=== PATIENT | female | born 1960 | race Caucasian/White ===

== ENCOUNTER 2019-11-19 10:32 | Observation (INO) ==
[2019-11-19] MEDS ORDERED: Aspirin 325 MG TABLET PO ONE (11:09)
[2019-11-19 11:10] LABS: Basophils % 0.7 %; Eosinophils # 0.1 K/mcL (0.0-0.6); Eosinophils % 1.6 %; Hematocrit 48.5 % (35.3-44.9); Immature Granulocytes % 0.2 % (0-4); Lymphocytes # 1.5 K/mcL (0.6-4.6); Lymphocytes % 23.9 %; Mean Corpuscular Hemoglobin 30.9 pg (28.0-33.3); Mean Corpuscular Volume 93.8 fL (83.0-100.0); Mean Platelet Volume 11.8 fL (9.4-12.4); Monocytes # 0.6 K/mcL (0.0-1.3); Platelet Count 192 K/mcL (140-400); Red Blood Count 5.17 M/mcL (3.82-4.97); Red Cell Distribution Width 12.7 % (11.5-14.5); Segmented Neutrophils % 64.6 %; White Blood Count 6.1 K/mcL (4.3-11.1)
[2019-11-19 11:36] LABS: BUN/Creatinine Ratio 19 (6-26); Blood Urea Nitrogen 16 mg/dL (6-20); Calcium 9.9 mg/dL (8.6-10.3); Carbon Dioxide 26 mEq/L (23-29); Chloride 103 mEq/L (98-107); Glucose 108 mg/dL (70-105); Osmolality,Calculated 288 (280-300); Potassium 3.6 mEq/L (3.5-5.1); Sodium 138 mEq/L (136-145); Troponin I < 0.03 ng/mL (< 0.04); eGFR For African Americans > 60 (> 60); eGFR For Non-African Americans > 60 (> 60)
[2019-11-19] MEDS ORDERED: Naloxone 0.4 MG/ML INJ IVP PRN (13:09)
[2019-11-19] MEDS ORDERED: Mag Hydrox/Al Hydrox/Simeth 30 ML UDC PO PRN (13:09)
[2019-11-19] MEDS ORDERED: Ondansetron ODT 4 MG TAB.RAPDIS SL PRN (13:09)
[2019-11-19] MEDS ORDERED: MOM Conc 10 ML UD.LIQ PO PRN (13:09)
[2019-11-19] MEDS ORDERED: Metoprolol 100 MG TABLET PO ONE (13:33)
[2019-11-19] MEDS ORDERED: 0.9 % Sodium Chloride 1,000 ML ONE (13:51)
[2019-11-19] MEDS ORDERED: Nitroglycerin 0.4 MG TAB.SUBL SL ONE ×2 (13:51→14:45)
[2019-11-19] MEDS ORDERED: *HR* Metoprolol 5 MG/5 ML VIAL IVP ONE (15:07)
[2019-11-19] MEDS ORDERED: Isovue-370 500 ML BOTTLE IVP ONE (15:28)
[2019-11-19] MEDS ORDERED: *HR* Heparin 5,000 UNIT/ML VIAL IVP PRN ×2 (16:08)
[2019-11-19] MEDS ORDERED: *HR* Heparin 5,000 UNIT/ML VIAL IVP ONE (16:08)
[2019-11-19 16:52] LABS: Hematocrit 43.5 % (35.3-44.9); Hemoglobin 14.5 g/dL (11.5-15.4); Mean Corpuscular HGB Conc 33.3 g/dL (31.6-35.5); Mean Corpuscular Hemoglobin 31.2 pg (28.0-33.3); Mean Corpuscular Volume 93.5 fL (83.0-100.0); Mean Platelet Volume 11.4 fL (9.4-12.4); Platelet Count 189 K/mcL (140-400); Red Blood Count 4.65 M/mcL (3.82-4.97); Red Cell Distribution Width 12.7 % (11.5-14.5); White Blood Count 5.3 K/mcL (4.3-11.1)
[2019-11-19 16:56] LABS: Heparin anti-factor XA UFH < 0.04 IU/mL (0.30-0.70); INR 1.1; Prothrombin Time 12.6 Seconds (9.4-12.1)
[2019-11-19] MEDS: Heparin 25,000 UNIT/250 ML D5W 25,000 UNIT/250 ML IV.SOLN IVC SCH (17:02)
[2019-11-20] MEDS ORDERED: Regadenoson 0.4 MG/5 ML SYRINGE IVP ONE (07:44)
[2019-11-20] MEDS: Aspirin 81 MG TAB.CHEW PO SCH (07:56)
[2019-11-20 09:15] LABS: Hematocrit 44.4 % (35.3-44.9); Hemoglobin 14.5 g/dL (11.5-15.4); Mean Corpuscular HGB Conc 32.7 g/dL (31.6-35.5); Mean Corpuscular Volume 95.1 fL (83.0-100.0); Mean Platelet Volume 11.8 fL (9.4-12.4); Platelet Count 173 K/mcL (140-400); Red Blood Count 4.67 M/mcL (3.82-4.97); Red Cell Distribution Width 12.7 % (11.5-14.5)
[2019-11-20 09:34] LABS: BUN/Creatinine Ratio 21 (6-26); Blood Urea Nitrogen 15 mg/dL (6-20); Calcium 9.1 mg/dL (8.6-10.3); Carbon Dioxide 26 mEq/L (23-29); Chloride 106 mEq/L (98-107); Glucose 77 mg/dL (70-105); Osmolality,Calculated 288 (280-300); Potassium 3.6 mEq/L (3.5-5.1); Sodium 139 mEq/L (136-145); eGFR For African Americans > 60 (> 60); eGFR For Non-African Americans > 60 (> 60)
[2019-11-20 09:35] LABS: Chol/HDL Ratio 2.9 (0-4.9)
[2019-11-20] MEDS: Acetaminophen 325 MG TABLET PO PRN (10:48)
[2019-11-20] MEDS ORDERED: Ondansetron 4 MG/2 ML VIAL IVP PRN (10:55)
[2019-11-20] MEDS: Heparin 25,000 UNIT/250 ML D5W 25,000 UNIT/250 ML IV.SOLN IVC SCH (17:09)
[2019-11-21] MEDS: Aspirin 81 MG TAB.CHEW PO SCH (07:37)
[2019-11-21 07:42] LABS: Estimated Average Glucose 114 mg/dl
[2019-11-21] MEDS: *HR* Heparin 5,000 UNIT/ML VIAL SQ SCH (17:24)
[2019-11-22] MEDS: *HR* Heparin 5,000 UNIT/ML VIAL SQ SCH ×2 (04:46→17:05)
[2019-11-22 05:10] LABS: Basophils # 0.1 K/mcL (0.0-0.2); Basophils % 1.5 %; Eosinophils # 0.2 K/mcL (0.0-0.6); Eosinophils % 5.9 %; Hematocrit 40.8 % (35.3-44.9); Hemoglobin 13.6 g/dL (11.5-15.4); Lymphocytes # 1.2 K/mcL (0.6-4.6); Lymphocytes % 35.2 %; Mean Corpuscular HGB Conc 33.3 g/dL (31.6-35.5); Mean Corpuscular Hemoglobin 31.5 pg (28.0-33.3); Mean Corpuscular Volume 94.4 fL (83.0-100.0); Mean Platelet Volume 12.2 fL (9.4-12.4); Monocytes # 0.4 K/mcL (0.0-1.3); Monocytes % 12.6 %; Neutrophils # 1.5 K/mcL (1.6-8.9); Platelet Count 145 K/mcL (140-400); Red Blood Count 4.32 M/mcL (3.82-4.97); Red Cell Distribution Width 12.8 % (11.5-14.5); Segmented Neutrophils % 44.8 %; White Blood Count 3.4 K/mcL (4.3-11.1)
[2019-11-22 05:27] LABS: BUN/Creatinine Ratio 20 (6-26); Blood Urea Nitrogen 16 mg/dL (6-20); Calcium 8.9 mg/dL (8.6-10.3); Carbon Dioxide 28 mEq/L (23-29); Chloride 109 mEq/L (98-107); Glucose 97 mg/dL (70-105); Osmolality,Calculated 291 (280-300); Potassium 3.9 mEq/L (3.5-5.1); Sodium 140 mEq/L (136-145); eGFR For African Americans > 60 (> 60); eGFR For Non-African Americans > 60 (> 60)
[2019-11-22] MEDS: Aspirin 81 MG TAB.CHEW PO SCH (08:08)
[2019-11-22] MEDS ORDERED: 0.9 % Sodium Chloride 1,000 ML ONE ×2 (08:10→09:16)
[2019-11-22] MEDS ORDERED: *HR* FentaNYL (PF) 100 MCG/2 ML VIAL ONE (08:13)
[2019-11-22] MEDS ORDERED: *HR* Midazolam HCl 2 MG/2 ML VIAL ONE (08:13)
[2019-11-22] MEDS ORDERED: Heparin 1,000 UNITS/500 mL 500 ML ONE (09:16)
[2019-11-22] MEDS ORDERED: ISOVUE-370 200 ML INFUS..BTL ONE (09:16)
[2019-11-22] MEDS ORDERED: *HR* Heparin 10,000 UNIT/10 ML VIAL ONE (09:16)
[2019-11-22] MEDS ORDERED: Nitroglycerin 1,000 MCG/10 ML VIAL IV ONE (09:16)
[2019-11-22] MEDS: Isosorbide MONOnitrate (24 HR) 30 MG TAB.ER.24H PO SCH (17:05)
[2019-11-22] MEDS: Acetaminophen 325 MG TABLET PO PRN (17:29)
[2019-11-23 05:28] LABS: Hematocrit 39.4 % (35.3-44.9); Mean Platelet Volume 12.2 fL (9.4-12.4); Platelet Count 149 K/mcL (140-400); Red Blood Count 4.19 M/mcL (3.82-4.97); Red Cell Distribution Width 12.8 % (11.5-14.5); White Blood Count 4.6 K/mcL (4.3-11.1)
[2019-11-23 05:46] LABS: BUN/Creatinine Ratio 22 (6-26); Blood Urea Nitrogen 16 mg/dL (6-20); Carbon Dioxide 29 mEq/L (23-29); Chloride 106 mEq/L (98-107); Glucose 96 mg/dL (70-105); Osmolality,Calculated 287 (280-300); Potassium 3.9 mEq/L (3.5-5.1); Sodium 138 mEq/L (136-145); eGFR For African Americans > 60 (> 60); eGFR For Non-African Americans > 60 (> 60)
[2019-11-23] MEDS: *HR* Heparin 5,000 UNIT/ML VIAL SQ SCH (06:26)
[2019-11-23 06:40] VITALS: BP 121/79
[2019-11-23] MEDS: Aspirin 81 MG TAB.CHEW PO SCH (08:18)
[2019-11-23] MEDS: Isosorbide MONOnitrate (24 HR) 30 MG TAB.ER.24H PO SCH (08:18)
[2019-11-23] MEDS: Acetaminophen 325 MG TABLET PO PRN (08:22)
[2019-11-23] MEDS ORDERED: Budesonide/Formoterol 80/4.5 1 PUFF INH IH SCH (10:00)
[2019-11-24 07:27] LABS: ANA IgG by ELISA NONE DETECTED (None Detected)
== END 2019-11-23 12:49 | disposition home or self-care (01) ==
LOC: 3BNU 10:32 → EMEROOARM 10:32 → SUATTDRO 13:09 → 3BNU 14:07
PROVIDERS: ADMIT Internal Medicine; ATTEND Internal Medicine